=== PATIENT | female | born 1950 | race Caucasian/White ===

== ENCOUNTER → 2019-03-28 | Outpatient (CLI) | payer MEDICARE ==
--- NOTE | 2019-03-29 15:42 | RADIOLOGY REPORT (SQ) ---
EXAM DESCRIPTION: U/S EXTREMITY NONVASCULAR LTD COMPLETED DATE/TIME: 03/28/2019 5:43 pm REASON FOR STUDY: R22.9 LOCALIZED SWELLING, MASS AND LUMP, UNSPECIFIED R22.9 LOCALIZED SWELLING, MA SS AND LUMP, UNSPECIFIED COMPARISON: None. TECHNIQUE: Static and real time price scale ultrasound Doppler spectral analysis, and color Doppler a cquired over the right and left gluteal regions LIMITATIONS: None. FINDINGS: Patient has a palpable lump along the right buttocks. Ultrasound of this area demonstrate s a 1 cm area of mixed increased and decreased echogenicity. No increased color flow. This could re present an area of fat necrosis or a 1 cm lymph node. There is minimal soft tissue subcutaneous adebayo a present. No abscess. Patient has a palpable lump along the left buttocks. Ultrasound over the palpable abnormality left b aimee demonstrates minimal soft tissue subcutaneous edema without discrete cystic or solid lesion. No abscess. Mild increased color flow. This likely represents an area of cellulitis. IMPRESSION: Probable bilateral gluteal soft tissue cellulitis. No abscess. 1 cm lymph node right g luteal region in the area palpable abnormality. TECHNICAL DOCUMENTATION: JOB ID: [id number] [employer]- All Rights Reserved Reading location - IP/workstation name: [email or web address]
== END ==
LOC: RAD 16:18
PROVIDERS: ATTEND Physician Assistant
DX: R22.9 Localized swelling, mass and lump, unspecified (principal)
CPT/HCPCS: 76882

== ENCOUNTER → 2019-06-10 | Outpatient (CLI) | payer MEDICARE, OTHER ==
[2019-06-10 13:44] LABS: ABSOLUTE BASOPHILS # (AUTO) 0.1 10^3/uL (0.0-0.2); ABSOLUTE EOSINOPHILS # (AUTO) 0.3 10^3/uL (0.0-0.6); ABSOLUTE LYMPHOCYTES (AUTO) 1.5 10^3/uL (0.5-4.7); ABSOLUTE MONOCYTES (AUTO) 0.3 10^3/uL (0.1-1.4); EOSINOPHILS % (AUTO) 5.4 % (0-6); HEMATOCRIT 27.6 % (36.0-47.0); HEMOGLOBIN 9.5 g/dL (12.0-15.5); LYMPHOCYTES % (AUTO) 28.7 % (13-45); MEAN CORPUSCULAR HGB CONC 34.3 g/dL (32.0-36.0); MEAN CORPUSCULAR VOLUME 99 fl (80-97); MONOCYTES % (AUTO) 6.7 % (3-13); PLATELET COUNT 345 10^3/uL (150-450); RED BLOOD COUNT 2.79 10^6/uL (3.72-5.28); SEGMENTED NEUTROPHILS % (AUTO) 58.2 % (42-78); TOTAL CELLS COUNTED % (AUTO) 100 %; WHITE BLOOD COUNT 5.2 10^3/uL (4.0-10.5)
[2019-06-10 14:03] LABS: ALBUMIN 4.1 g/dL (3.5-5.0); ALKALINE PHOSPHATASE 43 U/L (38-126); ANION GAP 6 (5-19); ASPARTATE AMINO TRANSFERASE 31 U/L (14-36); BILIRUBIN,TOTAL 0.9 mg/dL (0.2-1.3); BLOOD UREA NITROGEN 12 mg/dL (7-20); CALCIUM 9.5 mg/dL (8.4-10.2); CARBON DIOXIDE 30 mmol/L (22-30); CHLORIDE 102 mmol/L (98-107); GLUCOSE 115 mg/dL (75-110); POTASSIUM 4.7 mmol/L (3.6-5.0); TOTAL PROTEIN 6.4 g/dL (6.3-8.2)
[2019-06-10 14:42] LABS: ANISOCYTOSIS 4+; PLATELET COMMENT ADEQUATE
[2019-06-10 14:43] LABS: OVALOCYTES 1+; POIKILOCYTOSIS 1+; TARGET CELLS 1+
== END ==
LOC: OD 12:59
PROVIDERS: ATTEND Physician Assistant
DX: R06.02 Shortness of breath (principal)
CPT/HCPCS: 36415; 80053; 85025

== ENCOUNTER → 2019-09-03 | Outpatient (CLI) | payer MEDICARE, OTHER ==
--- NOTE | 2019-09-03 16:19 | RADIOLOGY REPORT (SQ) ---
EXAM DESCRIPTION: U/S EXTREMITY NONVASCULAR COMP IMAGES COMPLETED DATE/TIME: 09/03/2019 4:01 pm REASON FOR STUDY: R22.9 LOCALIZED SWELLING, MASS AND LUMP, UNSPECIFIED R22.9 LOCALIZED SWELLING, MA SS AND LUMP, UNSPECIFIED COMPARISON: 03/28/2019 TECHNIQUE: Dynamic and static grayscale images acquired of the localized site of clinical concern an d recorded on PACS. Additional selected color Doppler and spectral images recorded. SITE OF CONCERN: Medial left thigh LIMITATIONS: None. FINDINGS: SKIN AND SUBCUTANEOUS TISSUES: Focused sonographic evaluation of the area of concern invol ving the medial left thigh demonstrates an ill-defined hypoechoic area measuring approximately 6 x 7 x 8 mm with mild associated vascularity. No discrete drainable collection identified. No calcificat ions. DEEP SOFT TISSUES/MUSCLES: Incompletely imaged. No findings. VASCULAR: Not imaged. OTHER: No other significant finding. IMPRESSION: Focused sonographic evaluation of the area of concern involving the medial left thigh de monstrates ill-defined hypoechoic area measuring approximately 6 x 7 x 8 mm, indeterminate but possib ly representing fat necrosis. Recommend correlation with physical exam and patient history. Short-t erm follow should be considered if symptoms persist. No discrete drainable collection. TECHNICAL DOCUMENTATION: JOB ID: [id number] 2010 [email or web address]- All Rights Reserved Reading location - IP/workstation name: [email or web address]
== END ==
LOC: RAD 15:37
PROVIDERS: ATTEND Physician Assistant
DX: R22.42 Localized swelling, mass and lump, left lower limb (principal)
CPT/HCPCS: 76881

== ENCOUNTER → 2019-09-27 | Outpatient (CLI) | payer MEDICARE, OTHER ==
--- NOTE | 2019-09-27 09:57 | ER [facility] ASSESSMENT REPORT ---
Intake - In the Last 14 days Have you traveled outside [place]?: No Have you been in close contact with someone CONFIRMED: No Worked in Healthcare?: No - Symptoms Subjective Fever([place] feverish): No Chills: No Muscule Aches: Yes Runny Nose: No Sore Throat: No Cough (New or worsening chronic cough): Yes Shortness of breath: No Nausea or Vomiting: No Headache: Yes Abdominal Pain: No Diarrhea(3 or more loose stools in last 24 hours): No - Do you have any of the following Chronic lung disease: Asthma or emphysema or COPD: Yes Cystic Fibrosis: No Diabetes: No High Blood Pressure: No Cardiovascular Disease: No Chronic Kidney Disease: No Chronic Liver Disease: No Chronic blood disorder like Sickle Cell Disease: No Weak immune system due to disease or medication: No Neurologic condition that limits movement: No Developmental delay - Moderate to Severe: No Recent (within past 2 weeks) or current : No Morbid Obesity (>100 pounds over ideal weight): No - Objective Temperature: 96.5 F Pulse Rate: 67 Respiratory Rate: 18 Blood Pressure: 128/71 O2 Sat by Pulse Oximetry: 97 Objective: Given above, testing performed: If Testing Performed: Test Specimen Type Sent to General - General Mode of Arrival: Ambulatory Information source: Patient Notes: Patient presents to the [facility] for screening for the coronavirus. Patient reports body aches, cough and headache occasionally. Patient states that she had been treated for recent upper respiratory infection. Patient does have a history of asthma and MDS. Past Medical History - General Information source: Patient - Social History Smoking Status: Never Smoker Drug Abuse: None Family History: Reviewed & Not Pertinent - Medical History Medical History: Other - MDS Pulmonary Medical History: Reports: Hx Asthma Physical Exam - Notes Notes: The patient was evaluated during the global Covid 19 pandemic, and that diagnosis was suspected/considered upon their initial presentation. Their evaluation, treatment and testing was consistent with current guidelines for patients who present with complaints or symptoms that may be related to Covid 19. Full physical exam could not be performed due to covid 19 isolation protocols. Constitutional: Nontoxic appearance, no acute distress Eyes: Nonicteric, extraocular movements intact, sclera clear Cardiovascular: Heart rate and rhythm regular, no JVD Respiratory: BS clear, nonlabored breathing, no use of accessory muscles, no tachypnea Gastrointestinal: Abdomen not distended Muculoskeletal: Moves all extremities well Skin: Normal color Neuro: Awake alert oriented, normal speech Psych: Normal mood and affect Diagnostic Results Laboratory Results: Patient presents with upper respiratory symptoms worrisome for possible Covid 19. Patient does not have emergency worrying symptoms such as difficulty breathing, shortness of breath, chest pain, pressure, confusion or cyanosis. Patient appears suitable for discharge as vital signs are stable and patient is nontoxic in appearance. Good return precautions have been discussed with patient, patient verbalized understanding and is agreeable with discharge plan of care at this time. Patient Education/Counseling Counseling/Education: Patient was provided with discharge information including: As a person under investigation for Covid 19, the [facility], division of public health advises you to adhere to the following guidance until your test results are reported to you. If your test result is positive, you will receive additional information from your provider and your local health department at that time. Remain at home until you are cleared by the health provider or public health authorities. Keep a log of visitors to your home, notify any visitors to your home of your isolation status. If you plan to move to a new address or leave the county, notify the local health department in your County. Call your doctor or seek care if you have an urgent medical need. Before seeking medical care, call ahead to get instructions from the provider before arriving at the medical office clinic or hospital. Notify them that you are being tested for the virus that causes Covid 19 so that arrangements can be made, as necessary, to prevent transmission to others in the healthcare setting. Next, notify the local health department in your county. If a medical emergency arises and you need to call 911, inform the first responders that you are being tested for the virus that causes Covid 19. Next, notify the local health department in your county. [facility] Discharge - Discharge Clinical Impression: Encounter for screening laboratory testing for COVID-19 virus Condition: Stable Disposition: Home; Selfcare
[2019-09-27 10:06] VITALS: BP 128/71
== END ==
LOC: RDC 09:06
PROVIDERS: ATTEND Nurse Practitioner Family
DX: U07.1 COVID-19 (principal); R05 Cough; M79.10 Myalgia, unspecified site; R51 Headache; J45.909 Unspecified asthma, uncomplicated; D46.9 Myelodysplastic syndrome, unspecified
CPT/HCPCS: 99201; U0003; G0463; C9803; 87635; 99211

== ENCOUNTER → 2019-10-01 | Outpatient (CLI) | payer MEDICARE, OTHER ==
--- NOTE | 2019-10-01 16:11 | RADIOLOGY REPORT (SQ) ---
EXAM DESCRIPTION: CHEST PA/LATERAL IMAGES COMPLETED DATE/TIME: 10/01/2019 3:32 pm REASON FOR STUDY: COUGH R05 COUGH COMPARISON: None. NUMBER OF VIEWS: Two view. TECHNIQUE: Frontal and lateral radiographic views of the chest acquired. LIMITATIONS: None. FINDINGS: LUNGS AND PLEURA: No opacities, masses or pneumothorax. No pleural effusion. Attenuated bl ood vessels and flattened jv-diaphragms. MEDIASTINUM AND HILAR STRUCTURES: No masses. No contour abnormalities. HEART AND VASCULAR STRUCTURES: Heart normal in size and contour. No evidence for failure. BONES: No acute findings. HARDWARE: None in the chest. OTHER: No other significant finding. IMPRESSION: COPD. NO ACUTE RADIOGRAPHIC FINDING IN THE CHEST. TECHNICAL DOCUMENTATION: JOB ID: [id number] 2010 [employer]- All Rights Reserved Reading location - IP/workstation name: [email or web address]
== END ==
LOC: OD 15:19
PROVIDERS: ATTEND Physician Assistant
DX: R05 Cough (principal)
CPT/HCPCS: 71046

== ENCOUNTER → 2020-03-05 | Outpatient (CLI) | payer MEDICARE, OTHER ==
--- NOTE | 2020-03-05 11:00 | RADIOLOGY REPORT (SQ) ---
EXAM DESCRIPTION: BARIUM SWALLOW ESOPHAGUS IMAGES COMPLETED DATE/TIME: 03/05/2020 9:32 am REASON FOR STUDY: GASTRO-ESOPHAGEAL REFLUX WITH ESOPHAGITIS W/ BLEEDING K21.00 GASTRO-ESOPHAGEAL RE FLUX DIS WITH ESOPHAGITIS, WITHOU COMPARISON: None. TECHNIQUE: Under fluoroscopic guidance, patient ingested effervescent granules followed by thick and thin barium. Fluoroscopic spot images and routine radiographic images acquired and stored on PACS. 12 MM BARIUM TABLET GIVEN: Barium tablet passed through the esophagus and into the stomach without de lay. LIMITATIONS: None. FLUOROSCOPY TIME: FLUORO TIME: 2.0 minutes 8 images saved to PACS. FINDINGS: NEUROMUSCULAR COORDINATION OF SWALLOW: Normal. No aspiration. ESOPHAGEAL MOTILITY: Normal peristalsis. No esophageal spasm. ESOPHAGEAL MUCOSA: Normal mucosa without masses or ulceration. GASTRO-ESOPHAGEAL JUNCTION: No hiatal hernia. Moderate gastroesophageal reflux seen. NON-GI TRACT STRUCTURES: No significant finding. OTHER: No other significant finding. IMPRESSION: MODERATE GASTROESOPHAGEAL REFLUX. OTHERWISE UNREMARKABLE STUDY. RECOMMENDATION: NONE COMMENT: None Quality ID [id number]: Final reports for procedures using fluoroscopy that document radiation exposure risa kaveh, or exposure time and number of fluorographic images (if radiation exposure indices are not avail able) TECHNICAL DOCUMENTATION: JOB ID: [id number] 2010 [email or web address]- All Rights Reserved Reading location - IP/workstation name: [email or web address]
== END ==
LOC: RAD 08:57
PROVIDERS: ATTEND Physician Assistant
DX: K21.9 Gastro-esophageal reflux disease without esophagitis (principal)
CPT/HCPCS: 74220